=== PATIENT | female | born 1985 | race American Indian/Alaskan Native ===

== ENCOUNTER 2019-04-08 11:21 | Emergency (ER) | payer BC ==
--- NOTE | 2019-04-08 11:48 | Emergency Department Report ---
Blank Doc - Documentation Documentation: This is a 33-year-old female that presents with abdominal pain with nausea and vomiting. This initial assessment/diagnostic orders/clinical plan/treatment(s) is/are subject to change based on patient's health status, clinical progression and re- assessment by fellow clinical providers in the ED. Further treatment and workup at subsequent clinical providers discretion. Patient/guardians urged not to elope from the ED as their condition may be serious if not clinically assessed and managed. Initial orders include: 1- Patient sent to [facility] for further evaluation and treatment 2- labs 3- UA 4- Xray abdominal
[2019-04-08 12:07] LABS: Basophils % (Auto) 0.3 % (0.0-1.8); Eosinophils # (Auto) 0.1 K/mm3 (0.0-0.4); Eosinophils % (Auto) 1.1 % (0.0-4.3); Hematocrit 36.6 % (30.3-42.9); Hemoglobin 11.8 gm/dl (10.1-14.3); Lymphocytes # (Auto) 2.1 K/mm3 (1.2-5.4); Lymphocytes % (Auto) 40.1 % (13.4-35.0); Mean Corpuscular HGB Conc 32 % (30-34); Mean Corpuscular Volume 75 fl (79-97); Monocytes # (Auto) 0.5 K/mm3 (0.0-0.8); Platelet Count 253 K/mm3 (140-440); Red Blood Count 4.88 M/mm3 (3.65-5.03); Red Cell Distribution Width 15.8 % (13.2-15.2)
--- NOTE | 2019-04-08 12:27 | Emergency Department Report ---
HPI - General Chief Complaint: Abdominal Pain Time Seen by Provider: 04/08/19 11:47 - HPI HPI: 33-year-old -[place] female presents to the emergency department with a complaint of a one-week history of intermittent but progressively worsening abdo rachel pain. When she is laying on her side or her stomach patient says that she has sharp throbbing left lower quadrant abdominal pains. When she is sitting or standing, it is an intense ache. Currently it is 8 out of 10 in intensity. She has had a few episodes of nausea and vomiting. She denies any vaginal bleeding, vaginal discharge, dysuria, fever. She has not taken anything for her symptoms prior to arrival. She goes to [facility] for [employer] [place] but does not have a primary care physician. No recent travel or sick contacts at home. ED Past Medical Hx - Past Medical History Previous Medical History?: No - Surgical History Past Surgical History?: No - Social History Smoking Status: Current Every Day Smoker Substance Use Type: Alcohol - Medications Home Medications: Home Medications Medication Instructions Recorded Confirmed Last Taken Type HYDROcodone/APAP 5-325 [[place] 1 each PO Q6HR PRN #10 tablet 04/08/19 Unknown Rx 5/325] Nitrofurantoin [place]/M-Cryst 100 mg PO Q12HR #14 capsule 04/08/19 Unknown Rx [Macrobid CAP] ED Review of Systems ROS: Stated complaint: ABD PAIN/EXTREME Other details as noted in HPI Constitutional: denies: chills, fever Eyes: denies: eye pain, vision change ENT: denies: ear pain, throat pain Respiratory: denies: cough, shortness of breath Cardiovascular: denies: chest pain, palpitations Gastrointestinal: abdominal pain, nausea, vomiting Genitourinary: denies: dysuria, discharge Musculoskeletal: back pain. denies: arthralgia Skin: denies: rash, lesions Neurological: denies: headache, weakness Physical Exam - Physical Exam Vital Signs: Vital Signs 04/08/19 11:48 Temperature 98.1 F Pulse Rate 71 Respiratory 16 Rate Blood Pressure 127/92 O2 Sat by Pulse 96 Oximetry Physical Exam: GENERAL: The patient is well-developed well-nourished. HENT: Normocephalic. Atraumatic. Patient has moist mucous membranes. EYES: Extraocular motions are intact. NECK: Supple. Trachea is midline. CHEST/LUNGS: Clear to auscultation. There is no respiratory distress noted. HEART/CARDIOVASCULAR: Regular. There is no tachycardia. There is no murmur. ABDOMEN: Abdomen is soft. There is left lower quadrant abdominal tenderness to palpation. No guarding. Patient has normal bowel sounds. There is no abdominal distention. SKIN: Skin is warm and dry. NEURO: The patient is awake, alert, and oriented. The patient is cooperative. The patient has no focal neurologic deficits. The patient has normal speech. MUSCULOSKELETAL: There is no tenderness or deformity. There is no limitation range of motion. There is no evidence of acute injury. ED Course Vital Signs 04/08/19 11:48 Temperature 98.1 F Pulse Rate 71 Respiratory 16 Rate Blood Pressure 127/92 O2 Sat by Pulse 96 Oximetry ED Medical Decision Making - Lab Data Result diagrams: 04/08/19 11:57 04/08/19 11:57 - Radiology Data Radiology results: report reviewed, image reviewed interpreted by me: Chest x-ray does not show any acute process. There are no pleural effusions, obvious pneumonia and there is no pneumothorax. Abdominal x-ray shows nonspecific nonobstructive bowel gas CT ABDOMEN PELVIS WITHOUT CONTRAST: HISTORY: Left lower quadrant abdominal pain. COMPARISON: none. TECHNIQUE: Helical CT in 1.25mm intervals without IV contrast. Sagittal and coronal reconstructions. FINDINGS: Lung bases: Normal. Liver: Normal. Biliary system: Normal. Pancreas: Normal. Spleen: Normal. Kidneys/ureters/bladder: Normal. Adrenal glands: Normal. Aorta: Normal. Intestines: Normal. Appendix: Normal. Pelvic viscera: Normal. Ascites: None. Adenopathy: None. Musculoskeletal: Normal. IMPRESSION: Unremarkable CT scan of the abdomen and pelvis without contrast. Transcribed By: TTR Dictated By: SAUL GALLAGHER JR, MD Electronically Authenticated By: SAUL GALLAGHER JR, MD Signed Date/Time: 04/08/19 1320 - Medical Decision Making This patient presents to the emergency department with a complaint of some left sided middle and lower abdominal tenderness. It is worse when she is laying down on her stomach or on her side. She has some mild tenderness to palpation but no guarding. Abdomen is soft, nonrigid, nontoxic in appearance. Patient's labs have been unremarkable including CBC, CMP, and patient is not . The urinalysis does show a urinary tract infection. A CT was done of the abdomen and pelvis that does not show any acute process. The patient will be discharged home with some pain medication and antibiotics for her UTI. She has been given referrals for primary care and gastroenterology. She will return to the ER with any worsening of her symptoms or any acute distress. - Differential Diagnosis UTI, pyelonephritis, diverticulitis, Critical Care Time: No Critical care attestation.: If time is entered above; I have spent that time in minutes in the direct care of this critically ill patient, excluding procedure time. ED Disposition Clinical Impression: Abdominal pain Qualifiers: Abdominal location: lower abdomen, unspecified Qualified Code(s): R10.30 - Lower abdominal pain, unspecified UTI (urinary tract infection) Qualifiers: Urinary tract infection type: acute cystitis Hematuria presence: without hematuria Qualified Code(s): N30.00 - Acute cystitis without hematuria Disposition: TO HOME OR SELFCARE Is pt being admited?: No Condition: Stable Instructions: Urinary Tract Infection in Women (ED), Abdominal Pain (ED) Additional Instructions: Please follow up with a primary care physician in the next few days. I am giving you a referral for a local van driver, Dr. Gipson, to follow up regarding her abdominal pains. Take the antibiotics as prescribed for your urinary tract infection. Return to the emergency Department with any worsening of your symptoms or any acute distress. You have been prescribed a medication that is sedating and therefore should not be taken prior to driving, working, and responsible for children and in no way should be mixed with alcohol of any quantity. Prescriptions: Nitrofurantoin [place]/M-Cryst [Macrobid CAP] 100 mg PO Q12HR #14 capsule HYDROcodone/APAP 5-325 [[place] 5/325] 1 each PO Q6HR PRN #10 tablet PRN Reason: Pain Referrals: [facility] [Outside] - 2-3 Days MILLIE MASON DO [Staff Physician] - 2-3 Days VICENTE GIPSON MD [Staff Physician] - 2-3 Days Time of Disposition: 16:20
[2019-04-08 12:30] LABS: Alanine Aminotransferase 9 units/L (7-56); Albumin 3.7 g/dL (3.9-5); BUN/Creatinine Ratio 10; Blood Urea Nitrogen 7 mg/dL (7-17); Hemolysis Index 2
--- NOTE | 2019-04-08 13:20 | XRay Report ---
ABDOMINAL SERIES: History: Abdominal pain. Erect chest film shows no acute or significant changes involving the heart or lung cadena. There is no evidence of free air beneath the diaphragms. The gas pattern within the abdomen is unremarkable. There is no evidence of bowel dilatation, significant air-fluid levels, or masses. Organ shadows are unremarkable. IMPRESSION: Abdominal series within normal limits.
--- NOTE | 2019-04-08 13:25 | Cat Scan Report ---
CT ABDOMEN PELVIS WITHOUT CONTRAST: HISTORY: Left lower quadrant abdominal pain. COMPARISON: none. TECHNIQUE: Helical CT in 1.25mm intervals without IV contrast. Sagittal and coronal reconstructions. FINDINGS: Lung bases: Normal. Liver: Normal. Biliary system: Normal. Pancreas: Normal. Spleen: Normal. Kidneys/ureters/bladder: Normal. Adrenal glands: Normal. Aorta: Normal. Intestines: Normal. Appendix: Normal. Pelvic viscera: Normal. Ascites: None. Adenopathy: None. Musculoskeletal: Normal. IMPRESSION: Unremarkable CT scan of the abdomen and pelvis without contrast.
[2019-04-08] MEDS ORDERED: IBUPROFEN PO ONE (13:40)
[2019-04-08 14:04] LABS: Bacteria,Urine 1+ /HPF (Negative); Bilirubin,Urine NEG (Negative); Blood,Urine NEG (Negative); Color,Urine Yellow (Yellow); Mucus,Urine FEW /HPF; Protein,Urine <15 mg/dL mg/dL (Negative); Urobilinogen,Urine < 2.0 mg/dL (<2.0)
[2019-04-08 14:52] VITALS: BP 123/74
== END 2019-04-08 14:51 | disposition home or self-care (01) ==
LOC: ED 11:21
DX: N39.0 Urinary tract infection, site not specified (principal); F17.200 Nicotine dependence, unspecified, uncomplicated
CPT/HCPCS: 36415; 74022; 74176; 80053; 81001; 83690; 84703; 85025; 87086; 99284